=== PATIENT | female | born 1980 | race Caucasian/White ===

== ENCOUNTER 2019-01-17 12:36 | Emergency (ER) | payer MEDICAID ==
[~2019-01-17] VITALS: Ht 167.6 cm; Wt 120.2 kg
[2019-01-17 13:41] VITALS: BP 114/70
[2019-01-17] MEDS ORDERED: diphenhdrAMINE HCL 25 MG CAP PO ONE (14:00)
[2019-01-17] MEDS ORDERED: PROMETHAZINE HCL 25 MG/ML 1ML IM ONE (14:00)
[2019-01-17] MEDS ORDERED: KETOROLAC TROMETH 60MG/2ML VIAL IM ONE (14:00)
== END 2019-01-17 14:35 | disposition home or self-care (01) ==
LOC: ER 12:41
DX: H60.91 Unspecified otitis externa, right ear (principal); J03.90 Acute tonsillitis, unspecified; J44.9 Chronic obstructive pulmonary disease, unspecified; F17.210 Nicotine dependence, cigarettes, uncomplicated; F12.90 Cannabis use, unspecified, uncomplicated; Z98.51 Tubal ligation status
CPT/HCPCS: 96372; 99283; J1885; J2550